=== PATIENT | male | born 1945 | race Caucasian/White ===

== ENCOUNTER 2021-06-11 15:46 | Emergency (ER) | payer MEDICARE ==
[~2021-06-11] VITALS: Ht 175.3 cm; Wt 84.1 kg
[2021-06-11 16:29] LABS: HEMATOCRIT 46.7 % (39.0-50.0); IMMATURE GRANULOCYTES 0.1 % (0.0-5.0); MEAN CELL VOLUME 95.5 fL CALC (80.0-100.0); MEAN CORPUSCULAR HGB 30.7 pG CALC (26.0-32.0); MEAN CORPUSCULAR HGB CONC 32.1 g/dL CAL (32.0-36.0); NEUT# 5.97 thou/uL (1.82-7.42); RED BLOOD COUNT 4.89 mill/uL (4.70-6.10)
[2021-06-11 16:35] LABS: GFR > 60 ML/MIN (>=60 (CALC)); GFR FOR AFR.AMER. > 60 ML/MIN (>=60 (CALC))
[2021-06-11 16:43] LABS: ALBUMIN 4.3 g/dL (3.2-5.0); ALKALINE PHOSPHATASE 57 u/l (38-126); ANION GAP 11 (6-22 (CALC)); BILIRUBIN, TOTAL 0.6 mg/dL (0.0-1.4); BUN 22 mg/dL (8-23); BUN/CREATININE RATIO 20 (12-20 (CALC)); CARBON DIOXIDE 29 mmol/l (22-30); CHLORIDE 104 mmol/l (95-108); CREATININE 1.1 mg/dL (0.7-1.3); GFR > 60 ML/MIN (>=60 (CALC)); GFR FOR AFR.AMER. > 60 ML/MIN (>=60 (CALC)); LIPASE 284 u/l (23-300); POTASSIUM 4.2 mmol/l (3.5-5.1); SGOT/AST 35 u/l (19-48); SODIUM 141 mmol/l (137-146); TOTAL PROTEIN 7.2 g/dL (6.3-8.2)
[2021-06-11] MEDS ORDERED: HYDROCO/APAP1 TA9 PO (18:31)
[2021-06-11 18:59] VITALS: BP 159/90
[2021-06-12] MEDS ORDERED: CYCLOBENZAPRINE10 MG PO (11:56)
== END 2021-06-11 19:00 | disposition home or self-care (01) ==
LOC: ED 15:46
PROVIDERS: Family Medicine
DX: S22.41XA Multiple fractures of ribs, right side, initial encounter for closed fracture (principal); S50.11XA Contusion of right forearm, initial encounter; I10 Essential (primary) hypertension; F17.200 Nicotine dependence, unspecified, uncomplicated; W01.0XXA Fall on same level from slipping, tripping and stumbling without subsequent striking against object, initial encounter; Z79.01 Long term (current) use of anticoagulants

== ENCOUNTER 2024-06-07 10:38 | Emergency (ER) | payer MEDICARE ==
[~2024-06-07] VITALS: Ht 175.3 cm; Wt 75.0 kg
[~2024-06-07 10:38] MED LIST: CYCLOBENZAPRINE10 MG PO; HYDROCO/APAP1 TA9 PO
[2024-06-07 10:46] VITALS: BP 115/60
[2024-06-07 11:01] VITALS: BP 92/46
[2024-06-07] MEDS ORDERED: IPRATROPIUM-Albuterol 0.5MG-2.5MG/3 ML NEB ONE (11:05)
[2024-06-07] MEDS ORDERED: ALBUTEROL SULFATE 2.5 MG VIAL IN ONE ×2 (11:05)
[2024-06-07 11:31] VITALS: BP 115/55
[2024-06-07 11:33] LABS: BASO% 0.7 % (0-3); EOS% 1.3 % (0-8); IMMATURE GRANULOCYTES 0.2 % (0.0-5.0); LYMPH% 16.7 % (15-41); MEAN CELL VOLUME 97.2 fL CALC (80.0-100.0); MEAN CORPUSCULAR HGB 31.3 pG CALC (26.0-32.0); MEAN CORPUSCULAR HGB CONC 32.2 g/dL CAL (32.0-36.0); MONO% 15.8 % (2-13); NEUT# 2.94 thou/uL (1.82-7.42); NEUT% 65.3 % (42-76); RED BLOOD COUNT 3.99 mill/uL (4.70-6.10); RED CELL DISTRI WIDTH 12.7 % (11.5-15.5)
[2024-06-07 11:35] LABS: HEMATOCRIT 38.8 % (39.0-50.0); HEMOGLOBIN 12.5 g/dl (14.0-18.0)
[2024-06-07 11:48] LABS: BILIRUBIN, TOTAL 0.6 mg/dL (0.2-1.3); CREATININE 1.2 mg/dL (0.7-1.3); POTASSIUM 4.7 mmol/l (3.5-5.1); TOTAL PROTEIN 6.7 g/dL (6.3-8.2)
[2024-06-07 12:01] VITALS: BP 124/43
[2024-06-07 12:31] VITALS: BP 125/59
[2024-06-07] MEDS ORDERED: VENTOLIN HFA108 MCG IN (12:33)
[2024-06-07] MEDS ORDERED: KETOROLAC TROMETHAMINE 15 MG/ML SDV IM ONE (12:35)
[2024-06-07 12:42] VITALS: BP 125/59
== END 2024-06-07 12:57 | disposition home or self-care (01) ==
LOC: ED 10:38
PROVIDERS: Family Medicine
DX: J10.1 Influenza due to other identified influenza virus with other respiratory manifestations (principal); J44.9 Chronic obstructive pulmonary disease, unspecified; I10 Essential (primary) hypertension; I48.91 Unspecified atrial fibrillation; E78.5 Hyperlipidemia, unspecified; Z72.0 Tobacco use; Z20.822 Contact with and (suspected) exposure to COVID-19
CPT/HCPCS: J1885